=== PATIENT | male | born 1950 | race Caucasian/White ===

== ENCOUNTER 2018-11-12 16:01 | Observation (INO) | payer OTHER ==
[~2018-11-12] VITALS: Ht 182.9 cm; Wt 106.5 kg
[~2018-11-12 16:01] MED LIST: CARI350 PO; CYCL10 PO; HYDACE5 PO; LISI5 PO; METF500 PO; METO50 PO; NAPR500 PO; Norco 10-325 T1 EACH PO; SIMV10 PO
[2018-11-12 16:47] LABS: BASOPHILS ABSOLUTE AUTO 0.05 K/mm3 (0.00-0.23); BASOPHILS PERCENT AUTO 1 % (0-2); EOSINOPHILS ABSOLUTE AUTO 0.13 K/mm3 (0.00-0.68); EOSINOPHILS PERCENT AUTO 2 % (0-6); Hematocrit 43.9 % (37.0-53.0); Hemoglobin 14.5 g/dL (13.5-17.5); IMMATURE GRAN ABSOLUTE AUTO 0.05 K/mm3 (0.00-0.10); IMMATURE GRAN PERCENT AUTO 1 % (0-1); LYMPHOCYTES ABSOLUTE AUTO 0.81 K/mm3 (0.84-5.20); LYMPHOCYTES PERCENT AUTO 13 % (21-46); MONOCYTES ABSOLUTE AUTO 0.54 K/mm3 (0.16-1.47); MONOCYTES PERCENT AUTO 9 % (4-13); Mean Corpuscular HGB 28.7 pg (26.0-34.0); Mean Corpuscular Volume 87 fL (80-100); Mean Platelet Volume 10.4 fL (9.1-12.4); NEUTROPHILS ABSOLUTE AUTO 4.53 K/mm3 (1.96-9.15); NEUTROPHILS PERCENT AUTO 74 % (41-73); Platelet Count 144 K/mm3 (150-400); RDW Coefficient Variation 14.4 % (11.7-14.2); RDW Standard Deviation 46.1 fL (35.1-46.3); Red Blood Cell Count 5.05 M/mm3 (4.30-5.90); White Blood Cell Count 6.11 K/mm3 (4.00-11.30)
[2018-11-12] MEDS ORDERED: ASPI81CH PO (17:21)
[2018-11-12 17:22] LABS: Alanine Aminotransfer (ALT/SGP 21 U/L (12-78); Albumin, Blood 3.5 g/dL (3.4-5.0); Albumin/Globulin Ratio 0.9 (0.8-1.8); Alk Phos 228 U/L (50-136); Anion Gap 7 mmol/L (6-16); Aspartate Aminotrans (AST/SGOT 34 U/L (12-37); Bilirubin, Total 0.8 mg/dL (0.1-1.0); Blood Urea Nitrogen 20 mg/dL (8-24); Bun/Creatinine Ratio 17.5 (12.0-20.0); CO2, Blood 27 mmol/L (21-32); Calcium, Blood 8.6 mg/dL (8.5-10.1); Chloride, Blood 107 mmol/L (98-108); Creatinine, Blood 1.14 mg/dL (0.60-1.20); Globulin, Blood 3.7 g/dL (2.2-4.0); Glomerular Filtration Rate >60 (60-); Glucose, Blood 189 mg/dL (70-99); Potassium, Blood 3.9 mmol/L (3.5-5.5); Sodium, Blood 141 mmol/L (136-145); Total Protein, Blood 7.2 g/dL (6.4-8.2); Troponin I 0.017 ng/mL (0.000-0.040)
[2018-11-13 00:35] LABS: BASOPHILS ABSOLUTE AUTO 0.03 K/mm3 (0.00-0.23); BASOPHILS PERCENT AUTO 1 % (0-2); EOSINOPHILS ABSOLUTE AUTO 0.11 K/mm3 (0.00-0.68); EOSINOPHILS PERCENT AUTO 2 % (0-6); Hematocrit 39.1 % (37.0-53.0); IMMATURE GRAN ABSOLUTE AUTO 0.04 K/mm3 (0.00-0.10); IMMATURE GRAN PERCENT AUTO 1 % (0-1); LYMPHOCYTES ABSOLUTE AUTO 0.79 K/mm3 (0.84-5.20); LYMPHOCYTES PERCENT AUTO 14 % (21-46); MONOCYTES ABSOLUTE AUTO 0.52 K/mm3 (0.16-1.47); MONOCYTES PERCENT AUTO 9 % (4-13); Mean Corpuscular HGB 28.6 pg (26.0-34.0); Mean Corpuscular HGB Conc 33.2 g/dL (31.5-36.5); Mean Corpuscular Volume 86 fL (80-100); Mean Platelet Volume 10.2 fL (9.1-12.4); NEUTROPHILS ABSOLUTE AUTO 4.29 K/mm3 (1.96-9.15); NEUTROPHILS PERCENT AUTO 74 % (41-73); Platelet Count 112 K/mm3 (150-400); RDW Coefficient Variation 14.3 % (11.7-14.2); RDW Standard Deviation 44.5 fL (35.1-46.3); Red Blood Cell Count 4.55 M/mm3 (4.30-5.90); White Blood Cell Count 5.78 K/mm3 (4.00-11.30)
[2018-11-13 00:50] LABS: Anion Gap 7 mmol/L (6-16); Blood Urea Nitrogen 17 mg/dL (8-24); Bun/Creatinine Ratio 16.5 (12.0-20.0); CO2, Blood 27 mmol/L (21-32); Calcium, Blood 8.1 mg/dL (8.5-10.1); Chloride, Blood 107 mmol/L (98-108); Creatinine, Blood 1.03 mg/dL (0.60-1.20); Glomerular Filtration Rate >60 (60-); Glucose, Blood 143 mg/dL (70-99); Sodium, Blood 141 mmol/L (136-145)
--- NOTE | 2018-11-13 05:16 | NUR ---
SHIFT SUMMARY PT ADMITTED FOR CHEST PAIN. PT STATES PAIN A 4/10 UPON ARRIVAL, WORSE WITH DEEP BREATHS. DENIES FEELING SHORT OF BREATH. PT ALERT AND ORIENTED, INDEPENDENT IN ROOM. TELE APPLIED AND IS INTACT SHOWS NSR RATE IN THE 80'S. WILL CONTINUE TO MONITOR.
--- NOTE | 2018-11-13 12:40 | NUR ---
Echocardiogram completed.
--- NOTE | 2018-11-13 18:08 | NUR ---
ALERT AND ORIENTED. HAD FIRST PART OF STRESS TEST. GIVEN MEDS FOR VOMITING W/GOOD RESULTS. INDEPENDENT IN ROOM. TELE ON AND PER TECH SR W/OCC PVC'S. COOPERATIVE. PLEASANT. WHEN ASKED ABOUT PAIN , MILD TO NONE. ECHO AND US WARD LEGS DONE. UNLABORED RESPIRATIONS. WILL CONTINUE TO MONITOR.
--- NOTE | 2018-11-14 04:46 | NUR ---
SHIFT SUMMARY PT IS A&O, INDEPENDANT IN RM. RESTING QUIETLY AT START OF SHIFT. DENIED NEEDS. NO C/O PAIN. REQUESTED ZOFRAN AT HS. REPORTED THAT SOME MEDICATIONS MAKE HIM SICK. PT ADMITTED FOR CP. FIRST PART OF STRESS TEST COMPLETE ON TUESDAY. SECOND PART DUE TODAY. PT TO HAVE BREAKFAST AT 07:45 AND BE FINISHED BY 08:30, PER SHIFT REPORT. HX OF CHF, HTN, HLD, AND STOKE. SR ON TELE. CALL LT IN REACH. ABLE TO MAKE NEEDS KNOWN.
[2018-11-14] MEDS ORDERED: ACET325 PO (18:09)
[2018-11-14] MEDS ORDERED: FURO40 PO (18:10)
[2018-11-14] MEDS ORDERED: FAMO20 PO (18:10)
[2018-11-14] MEDS ORDERED: DOCU100 PO (18:10)
--- NOTE | 2018-11-14 19:07 | NUR ---
REVIEW D'C INSTRUCTIONS. AWARE TO RETAIL [facility] AT [facility] IN [place]. AWARE TO MAKE APPT W/[facility]. STS SEES [facility] TUESDAY AND THEY WILL BE ABLE TO GET HIM AN APPT WITHIN 2 DAYS. AWARE TO CALL CARDIOLOGY AND MAKE APPT. GIVEN NAME BUT TOLD OTHER CARDIOLOGISTS IN HIS OFFICE MAY BE ABLE TO GET HIM IN ALSO. TALKED ABOUT PATIENT [facility] WHICH HE CAN CALL TOMORROW ABOUT ADMIT. ANSWER ALL QUESTIONS. VERBALIZES UNDERSTANDING OF INSTRUCTIONS. IN W/C W/WEIGH TANK OPERATOR TO POV WITH MULTIPLE FAMILY MEMBERS.
== END 2018-11-14 19:11 | disposition home or self-care (01) ==
LOC: ER 16:01 → MEDS 16:02 → ER 18:49 → MEDS 20:03
PROVIDERS: Physician Assistant; ADMIT Internal Medicine
DX: R07.89 Other chest pain (principal); I11.0 Hypertensive heart disease with heart failure; I50.9 Heart failure, unspecified; E11.9 Type 2 diabetes mellitus without complications; E78.5 Hyperlipidemia, unspecified; R79.1 Abnormal coagulation profile; I25.10 Atherosclerotic heart disease of native coronary artery without angina pectoris; I25.2 Old myocardial infarction; Z88.0 Allergy status to penicillin; Z86.73 Personal history of transient ischemic attack (TIA), and cerebral infarction without residual deficits; Z79.82 Long term (current) use of aspirin; Z79.899 Other long term (current) drug therapy; Z88.8 Allergy status to other drugs, medicaments and biological substances
CPT/HCPCS: 36415; 71046; 71260; 78452; 80048; 80053; 82947; 83880; 84484; 85025; 85379; 93005; 93010; 93017; 93306; 93970; 96372; 96374; 96375; 99285-25; A9500; G0378; J0706; J1650; J1940; J2405; J2785; Q9967

== ENCOUNTER 2018-11-30 11:50 | Emergency (ER) | payer OTHER ==
[~2018-11-30] VITALS: Ht 182.9 cm; Wt 104.3 kg
[~2018-11-30 11:50] MED LIST changes: +ACET325 PO; +ASPI81CH PO; +DOCU100 PO; +FAMO20 PO; +FURO40 PO
[2018-11-30 12:41] LABS: BASOPHILS ABSOLUTE AUTO 0.05 K/mm3 (0.00-0.23); BASOPHILS PERCENT AUTO 1 % (0-2); EOSINOPHILS ABSOLUTE AUTO 0.04 K/mm3 (0.00-0.68); EOSINOPHILS PERCENT AUTO 1 % (0-6); Hematocrit 39.8 % (37.0-53.0); Hemoglobin 13.2 g/dL (13.5-17.5); IMMATURE GRAN ABSOLUTE AUTO 0.11 K/mm3 (0.00-0.10); IMMATURE GRAN PERCENT AUTO 2 % (0-1); LYMPHOCYTES ABSOLUTE AUTO 0.84 K/mm3 (0.84-5.20); LYMPHOCYTES PERCENT AUTO 12 % (21-46); MONOCYTES ABSOLUTE AUTO 0.59 K/mm3 (0.16-1.47); MONOCYTES PERCENT AUTO 8 % (4-13); Mean Corpuscular HGB 27.8 pg (26.0-34.0); Mean Corpuscular HGB Conc 33.2 g/dL (31.5-36.5); Mean Corpuscular Volume 84 fL (80-100); Mean Platelet Volume 9.6 fL (9.1-12.4); NEUTROPHILS ABSOLUTE AUTO 5.39 K/mm3 (1.96-9.15); NEUTROPHILS PERCENT AUTO 77 % (41-73); Platelet Count 126 K/mm3 (150-400); RDW Coefficient Variation 14.2 % (11.7-14.2); RDW Standard Deviation 43.6 fL (35.1-46.3); Red Blood Cell Count 4.74 M/mm3 (4.30-5.90); White Blood Cell Count 7.02 K/mm3 (4.00-11.30)
[2018-11-30 12:58] LABS: Albumin, Blood 3.3 g/dL (3.4-5.0); Albumin/Globulin Ratio 0.8 (0.8-1.8); Bilirubin, Total 0.7 mg/dL (0.1-1.0); Bun/Creatinine Ratio 19.1 (12.0-20.0); Calcium, Blood 9.6 mg/dL (8.5-10.1); Creatinine, Blood 1.41 mg/dL (0.60-1.20); Globulin, Blood 4.4 g/dL (2.2-4.0); Potassium, Blood 4.9 mmol/L (3.5-5.5); Total Protein, Blood 7.7 g/dL (6.4-8.2)
[2018-11-30 13:04] LABS: Source, Urine Clean Catch
[2018-11-30 13:11] LABS: Bilirubin, Urine Neg (Neg); Blood, Urine 2+ (Neg); Glucose Qualitative, Urine Neg (Neg); Ketones, Urine 1+ (Neg); Leukocyte Esterase, Urine Neg (Neg); Nitrite, Urine Neg (Neg); Protein, Urine 2+ (Neg); Specific Gravity, Urine 1.015 (1.003-1.022); Urobilinogen, Urine NORM (Normal)
[2018-11-30 14:44] LABS: Appearance, Urine Clear (Clear); Color, Urine Yellow (P-Yellow)
[2018-11-30 14:57] LABS: Bacteria Few /hpf; Hyaline Casts 0-2 /lpf (0-2); Mucus Light (0-Heavy); Squamous Epithelial Cells Rare /hpf (Few)
[2018-11-30] MEDS ORDERED: Norco 5-325 Ta1 EACH PO (16:58)
== END 2018-11-30 18:03 | disposition home or self-care (01) ==
LOC: ER 11:50
PROVIDERS: Physician Assistant
DX: E86.0 Dehydration (principal); N17.9 Acute kidney failure, unspecified; N28.1 Cyst of kidney, acquired; I25.10 Atherosclerotic heart disease of native coronary artery without angina pectoris; I10 Essential (primary) hypertension; E11.9 Type 2 diabetes mellitus without complications; I25.2 Old myocardial infarction; E78.5 Hyperlipidemia, unspecified; Z79.84 Long term (current) use of oral hypoglycemic drugs; Z79.82 Long term (current) use of aspirin; Z79.899 Other long term (current) drug therapy; Z88.0 Allergy status to penicillin; Z88.8 Allergy status to other drugs, medicaments and biological substances
CPT/HCPCS: 36415; 76770; 80053; 81001; 83690; 83880; 85025; 96361; 96374; 96375; 96376; 99283-25; J1170; J2405; J3010; J7030; J7120

== ENCOUNTER 2018-12-08 13:03 | Emergency (ER) | payer OTHER ==
[~2018-12-08] VITALS: Ht 180.3 cm; Wt 102.1 kg
[~2018-12-08 13:03] MED LIST changes: +Norco 5-325 Ta1 EACH PO
[2018-12-08 13:59] LABS: BASOPHILS ABSOLUTE AUTO 0.03 K/mm3 (0.00-0.23); BASOPHILS PERCENT AUTO 1 % (0-2); EOSINOPHILS ABSOLUTE AUTO 0.08 K/mm3 (0.00-0.68); EOSINOPHILS PERCENT AUTO 1 % (0-6); Hematocrit 37.2 % (37.0-53.0); Hemoglobin 12.3 g/dL (13.5-17.5); IMMATURE GRAN PERCENT AUTO 2 % (0-1); LYMPHOCYTES ABSOLUTE AUTO 0.71 K/mm3 (0.84-5.20); LYMPHOCYTES PERCENT AUTO 13 % (21-46); MONOCYTES ABSOLUTE AUTO 0.43 K/mm3 (0.16-1.47); MONOCYTES PERCENT AUTO 8 % (4-13); Mean Corpuscular HGB Conc 33.1 g/dL (31.5-36.5); Mean Corpuscular Volume 85 fL (80-100); Mean Platelet Volume 9.3 fL (9.1-12.4); NEUTROPHILS ABSOLUTE AUTO 4.22 K/mm3 (1.96-9.15); NEUTROPHILS PERCENT AUTO 76 % (41-73); Platelet Count 132 K/mm3 (150-400); RDW Coefficient Variation 14.7 % (11.7-14.2); RDW Standard Deviation 45.1 fL (35.1-46.3); White Blood Cell Count 5.57 K/mm3 (4.00-11.30)
[2018-12-08 14:12] LABS: Alanine Aminotransfer (ALT/SGP 37 U/L (12-78); Albumin, Blood 3.2 g/dL (3.4-5.0); Albumin/Globulin Ratio 0.7 (0.8-1.8); Alk Phos 299 U/L (50-136); Anion Gap 7 mmol/L (6-16); Aspartate Aminotrans (AST/SGOT 52 U/L (12-37); Bilirubin, Total 0.5 mg/dL (0.1-1.0); Blood Urea Nitrogen 31 mg/dL (8-24); Bun/Creatinine Ratio 21.7 (12.0-20.0); CO2, Blood 25 mmol/L (21-32); Calcium, Blood 9.5 mg/dL (8.5-10.1); Chloride, Blood 106 mmol/L (98-108); Creatinine, Blood 1.43 mg/dL (0.60-1.20); Globulin, Blood 4.3 g/dL (2.2-4.0); Glomerular Filtration Rate 52 (60-); Glucose, Blood 104 mg/dL (70-99); Potassium, Blood 4.4 mmol/L (3.5-5.5); Sodium, Blood 138 mmol/L (136-145); Total Protein, Blood 7.5 g/dL (6.4-8.2); Troponin I <0.015 ng/mL (0.000-0.040)
[2018-12-08 15:47] LABS: Source, Urine Clean Catch
[2018-12-08 15:53] LABS: Appearance, Urine Clear (Clear); Bilirubin, Urine Neg (Neg); Blood, Urine 2+ (Neg); Color, Urine Yellow (P-Yellow); Glucose Qualitative, Urine Neg (Neg); Ketones, Urine Neg (Neg); Leukocyte Esterase, Urine Neg (Neg); Nitrite, Urine Neg (Neg); Protein, Urine 2+ (Neg); Urobilinogen, Urine NORM (Normal)
[2018-12-08 15:59] LABS: Bacteria Few /hpf; Squamous Epithelial Cells Not Seen /hpf (Few); White Blood Cells, Urine 0-2 /hpf (0-5)
[2018-12-08] MEDS ORDERED: PHENERGAN25 MG PR (16:21)
[2018-12-09] MEDS ORDERED: Stool Softener240 MG PO (10:37)
[2018-12-09] MEDS ORDERED: Prilosec Otc20 MG PO (10:37)
== END 2018-12-08 17:05 | disposition home or self-care (01) ==
LOC: ER 13:03
PROVIDERS: Emergency Medicine
DX: N13.30 Unspecified hydronephrosis (principal); N18.9 Chronic kidney disease, unspecified; R74.8 Abnormal levels of other serum enzymes; Z88.0 Allergy status to penicillin; Z88.8 Allergy status to other drugs, medicaments and biological substances; Z79.899 Other long term (current) drug therapy; Z79.84 Long term (current) use of oral hypoglycemic drugs; Z79.82 Long term (current) use of aspirin; I25.2 Old myocardial infarction
CPT/HCPCS: 36415; 76770; 80053; 81001; 83690; 84484; 85025; 93005; 93010; 96361; 96374; 96375; 99284-25; J2270; J2405; J7030

== ENCOUNTER 2018-12-09 08:26 | Emergency (ER) | payer OTHER ==
[~2018-12-09] VITALS: Ht 182.9 cm; Wt 102.1 kg
[~2018-12-09 08:26] MED LIST changes: +PHENERGAN25 MG PR
[2018-12-09 08:49] LABS: Source, Urine Clean Catch
[2018-12-09 08:52] LABS: Appearance, Urine Clear (Clear); Bilirubin, Urine Neg (Neg); Blood, Urine 2+ (Neg); Color, Urine Yellow (P-Yellow); Glucose Qualitative, Urine Neg (Neg); Ketones, Urine Neg (Neg); Leukocyte Esterase, Urine Neg (Neg); Nitrite, Urine Neg (Neg); Protein, Urine 2+ (Neg); Urobilinogen, Urine 1+ (Normal)
[2018-12-09 09:11] LABS: BASOPHILS ABSOLUTE AUTO 0.04 K/mm3 (0.00-0.23); BASOPHILS PERCENT AUTO 1 % (0-2); EOSINOPHILS ABSOLUTE AUTO 0.05 K/mm3 (0.00-0.68); EOSINOPHILS PERCENT AUTO 1 % (0-6); Hematocrit 35.5 % (37.0-53.0); Hemoglobin 11.8 g/dL (13.5-17.5); IMMATURE GRAN ABSOLUTE AUTO 0.08 K/mm3 (0.00-0.10); IMMATURE GRAN PERCENT AUTO 1 % (0-1); LYMPHOCYTES ABSOLUTE AUTO 0.49 K/mm3 (0.84-5.20); LYMPHOCYTES PERCENT AUTO 8 % (21-46); MONOCYTES ABSOLUTE AUTO 0.51 K/mm3 (0.16-1.47); MONOCYTES PERCENT AUTO 9 % (4-13); Mean Corpuscular HGB 27.6 pg (26.0-34.0); Mean Corpuscular HGB Conc 33.2 g/dL (31.5-36.5); Mean Corpuscular Volume 83 fL (80-100); Mean Platelet Volume 9.3 fL (9.1-12.4); NEUTROPHILS PERCENT AUTO 81 % (41-73); Platelet Count 117 K/mm3 (150-400); Red Blood Cell Count 4.27 M/mm3 (4.30-5.90); White Blood Cell Count 5.97 K/mm3 (4.00-11.30)
[2018-12-09 09:35] LABS: Albumin, Blood 3.1 g/dL (3.4-5.0); Albumin/Globulin Ratio 0.8 (0.8-1.8); Bilirubin, Total 0.9 mg/dL (0.1-1.0); Bun/Creatinine Ratio 20.5 (12.0-20.0); Creatinine, Blood 1.32 mg/dL (0.60-1.20); Globulin, Blood 4.1 g/dL (2.2-4.0); Potassium, Blood 4.5 mmol/L (3.5-5.5); Total Protein, Blood 7.2 g/dL (6.4-8.2)
[2018-12-09 09:51] LABS: Bacteria Rare /hpf; Squamous Epithelial Cells Rare /hpf (Few)
[2018-12-09 10:24] LABS: International Normalized Ratio 1.1; Prothrombin Time Results 11.6 Sec (9.7-11.5)
[2018-12-09] MEDS ORDERED: Stool Softener240 MG PO (10:37)
[2018-12-09] MEDS ORDERED: Prilosec Otc20 MG PO (10:37)
== END 2018-12-09 11:30 | disposition home or self-care (01) ==
LOC: ER 08:26
PROVIDERS: Physician Assistant
DX: K92.2 Gastrointestinal hemorrhage, unspecified (principal); M54.5 Low back pain; R11.2 Nausea with vomiting, unspecified; I25.2 Old myocardial infarction; Z79.899 Other long term (current) drug therapy; Z79.82 Long term (current) use of aspirin; Z79.84 Long term (current) use of oral hypoglycemic drugs
CPT/HCPCS: 36415; 80053; 81001; 85025; 85610; 85730; 96361; 96374; 96375; 99284-25; C9113; J1170; J2550; J7030

== ENCOUNTER → 2019-11-21 | Outpatient (CLI) | payer OTHER ==
[~2019-11-21] MED LIST changes: +Prilosec Otc20 MG PO; +Stool Softener240 MG PO
[2019-11-21 17:14] LABS: Microalb/Creat Ratio UR, Rand 18.433 mg/g (0.000-30.000); Microalbumin, Random Urine 24.7 mg/L (0.000-20.000)
== END | disposition home or self-care (01) ==
LOC: LAB SHORT 14:40 → LAB 14:40
PROVIDERS: Nurse Practitioner Family
DX: E11.9 Type 2 diabetes mellitus without complications (principal)
CPT/HCPCS: 82043; 82570

== ENCOUNTER 2020-08-06 10:28 | Observation (INO) | payer OTHER ==
[~2020-08-06] VITALS: Ht 182.9 cm; Wt 113.4 kg
[~2020-08-06 10:28] MED LIST changes: -ASPI81CH PO; -LISI5 PO; -METO50 PO
[2020-08-06 11:23] LABS: BASOPHILS ABSOLUTE AUTO 0.03 K/mm3 (0.00-0.23); BASOPHILS PERCENT AUTO 0 % (0-2); EOSINOPHILS ABSOLUTE AUTO 0.07 K/mm3 (0.00-0.68); EOSINOPHILS PERCENT AUTO 1 % (0-6); Hematocrit 34.4 % (37.0-53.0); Hemoglobin 10.8 g/dL (13.5-17.5); IMMATURE GRAN ABSOLUTE AUTO 0.09 K/mm3 (0.00-0.10); IMMATURE GRAN PERCENT AUTO 1 % (0-1); LYMPHOCYTES ABSOLUTE AUTO 0.96 K/mm3 (0.84-5.20); LYMPHOCYTES PERCENT AUTO 13 % (21-46); MONOCYTES ABSOLUTE AUTO 0.48 K/mm3 (0.16-1.47); MONOCYTES PERCENT AUTO 7 % (4-13); Mean Corpuscular HGB 26.4 pg (26.0-34.0); Mean Corpuscular HGB Conc 31.4 g/dL (31.5-36.5); Mean Corpuscular Volume 84 fL (80-100); Mean Platelet Volume 10.4 fL (9.1-12.4); NEUTROPHILS ABSOLUTE AUTO 5.65 K/mm3 (1.96-9.15); NEUTROPHILS PERCENT AUTO 78 % (41-73); Platelet Count 220 K/mm3 (150-400); RDW Coefficient Variation 15.6 % (11.7-14.2); RDW Standard Deviation 47.7 fL (35.1-46.3); Red Blood Cell Count 4.09 M/mm3 (4.30-5.90); White Blood Cell Count 7.28 K/mm3 (4.00-11.30)
[2020-08-06 11:47] LABS: Alanine Aminotransfer (ALT/SGP 36 U/L (12-78); Albumin, Blood 2.7 g/dL (3.4-5.0); Albumin/Globulin Ratio 0.5 (0.8-1.8); Alk Phos 744 U/L (50-136); Anion Gap 9 mmol/L (6-16); Aspartate Aminotrans (AST/SGOT 48 U/L (12-37); Bilirubin, Total 1.1 mg/dL (0.1-1.0); Blood Urea Nitrogen 32 mg/dL (8-24); Bun/Creatinine Ratio 19.5 (12.0-20.0); CO2, Blood 24 mmol/L (21-32); Calcium, Blood 9.5 mg/dL (8.5-10.1); Chloride, Blood 106 mmol/L (98-108); Creatinine, Blood 1.64 mg/dL (0.60-1.20); Globulin, Blood 5.1 g/dL (2.2-4.0); Glomerular Filtration Rate 44 (60-); Glucose, Blood 314 mg/dL (70-99); Potassium, Blood 4.1 mmol/L (3.5-5.5); Sodium, Blood 139 mmol/L (136-145); Total Protein, Blood 7.8 g/dL (6.4-8.2); Troponin I <0.015 ng/mL (0.000-0.040)
[2020-08-06] MEDS ORDERED: PANTOPRAZOLE SO40 M2 PO (13:16)
[2020-08-06] MEDS ORDERED: ATORVASTATIN CA20 MG PO (13:17)
[2020-08-06] MEDS ORDERED: Imdur-ER60 MG PO (13:18)
[2020-08-06] MEDS ORDERED: GLIP5 PO (13:19)
[2020-08-06] MEDS ORDERED: METOPROLOL TART25 MG PO (13:19)
[2020-08-06] MEDS ORDERED: LISI5 PO (13:20)
[2020-08-06] MEDS ORDERED: Aspir 8181 MG PO (13:21)
[2020-08-06] MEDS ORDERED: GLIP10ER PO (13:42)
--- NOTE | 2020-08-06 17:01 | NUR ---
PT ARRIVED TO UNIT AT APROX 1600 FROM ER. PT DENIES CP OR SOB AT THIS TIME, DOES C/O NAUSEA. PT TEARFUL AT TIMES DUE TO WIFES TODAY. FAMILY AT BEDSIDE.
--- NOTE | 2020-08-06 23:44 | NUR ---
NAUSEA + LIQUID RED STOOL PT REPORTING NAUSEA NOT DECREASED WITH ORDERED RAND LEUNG NOTIFIED + NEW ORDERS OBTAINED. BRINE TANK OPERATOR ALSO NOTIFIED OF SMALL AMOUNTS OF LIQUID RED STOOL + AWAITING STOOL GUIAC RESULTS, NO NEW ORDERS AT THIS TIME.
--- NOTE | 2020-08-07 04:15 | NUR ---
SHIFT SUMMARY NEW ADMIT YESTARDAY EVENING. AAOX4/ANXIOUS AT TIMES. PT DENIES DISCOMFORT. REPORTS CHRONIC NAUSEA, NOT CONTROLLED WITH ZOFRAN PO OR IV, DR NOTIFIED + COMPAZINE ORDERED, HELPED PT RESTING THROUGH MOST OF MORNING. SMALL AMOUNTS OF CLEAR EMESIS THIS SHIFT. MINIMAL PO INTAKE + URINE OUT THIS SHIFT. INCONTINENT IN ATTENDS WITH MULTIPLE SMALL LIQUID RED STOOLS, AWAITING STOOL GUIAC RESULTS + WILL CONTINUE TO ATTEMPT COLLECTION OF 2ND STOOL THIS AM, NOTIFIED THIS SHIFT OF RED LIQUID STOOL, NO NEW ORDERS, SEE NURSES NOTE. PT IN BED T/O SHIFT RESTING, ENCOURAGE REPOSITIONING + AMBULATION TODAY TOLERATED. AWAITING LAB THIS AM. TELEMETRY NSR WITH PVCs + BBB. REFUSING LOVENOX. SON AT BEDSIDE T/O NIGHT. NEW 20G IV PL[address] TO [facility]. PT CURRENTLY RESTING IN BED + REQUESTED TO NOT BE AWOKEN, WILL CONSOLIDATE CARE TO PROVIDE BEST REST FOR PT. PT CURRENTLY RESTING IN BED WITH CALL LIGHT IN REACH.
[2020-08-07 05:47] LABS: Hematocrit 29.5 % (37.0-53.0); Hemoglobin 9.4 g/dL (13.5-17.5); Mean Corpuscular HGB 26.3 pg (26.0-34.0); Mean Corpuscular HGB Conc 31.9 g/dL (31.5-36.5); Mean Corpuscular Volume 83 fL (80-100); Mean Platelet Volume 9.8 fL (9.1-12.4); Platelet Count 185 K/mm3 (150-400); RDW Coefficient Variation 15.2 % (11.7-14.2); RDW Standard Deviation 46.6 fL (35.1-46.3); Red Blood Cell Count 3.57 M/mm3 (4.30-5.90); White Blood Cell Count 7.33 K/mm3 (4.00-11.30)
[2020-08-07 06:07] LABS: Bun/Creatinine Ratio 20.3 (12.0-20.0); Calcium, Blood 8.9 mg/dL (8.5-10.1); Creatinine, Blood 1.77 mg/dL (0.60-1.20)
[2020-08-07 09:05] LABS: Stool Occult Blood Guaiac 1 Pos (Neg)
[2020-08-07 10:02] LABS: Hematocrit 28.4 % (37.0-53.0); Hemoglobin 8.9 g/dL (13.5-17.5)
[2020-08-07 14:36] LABS: Hematocrit 27.7 % (37.0-53.0); Hemoglobin 8.7 g/dL (13.5-17.5)
--- NOTE | 2020-08-07 19:56 | NUR ---
SHIFT SUMMARY PT A&OX4, VSS, DENIES PAIN, NAUSEA TX'D WITH COMPAZINE 10 MG IV. GI CONSULT COMPLETE. STAND PIVOT TO BSC W/1 PP MOD ASSIST. VOIDING WELL, BM'S RED BLOOD W/STOOL (BOTH HOSPITALIST AND GI MD SAW RED BL BM). BANDAR PO, DENIES N&V. REPORT PROVIDED TO ROSA RUBIN.
[2020-08-07 22:14] LABS: Hematocrit 26.1 % (37.0-53.0); Hemoglobin 8.3 g/dL (13.5-17.5)
[2020-08-08 02:45] LABS: Hematocrit 24.9 % (37.0-53.0); Hemoglobin 7.9 g/dL (13.5-17.5)
[2020-08-08 03:00] LABS: Anion Gap 7 mmol/L (6-16); Blood Urea Nitrogen 41 mg/dL (8-24); Bun/Creatinine Ratio 24.1 (12.0-20.0); CO2, Blood 25 mmol/L (21-32); Calcium, Blood 8.3 mg/dL (8.5-10.1); Chloride, Blood 109 mmol/L (98-108); Glomerular Filtration Rate 42 (60-); Glucose, Blood 97 mg/dL (70-99); Phosphorus, Blood 2.8 mg/dL (2.5-4.9); Potassium, Blood 3.5 mmol/L (3.5-5.5); Sodium, Blood 141 mmol/L (136-145)
--- NOTE | 2020-08-08 04:33 | NUR ---
SHIFT SUMMARY PT RESTED WELL T/O NIGHT. AAOX4. PT DENIES DISCOMFORT. NAUSEA CONTROLLED WITH COMPAZINE 10MG X1 THIS SHIFT, NO EMESIS. X1 SCANT LIQUID RED STOOL. NEW IV PLACED THIS SHIFT RIGHT FA WITH IVF INFUSING PER ORDERS. Q6H H+H. GI CONSULT. NO ACUTE CHANGES THIS SHIFT. PT CURRENTLY RESTING IN BED WITH CALL LIGHT IN REACH.
[2020-08-08 08:54] LABS: Hematocrit 28.3 % (37.0-53.0); Hemoglobin 8.9 g/dL (13.5-17.5)
[2020-08-08] MEDS ORDERED: COMPAZINE10 MG PO (11:39)
--- NOTE | 2020-08-08 13:49 | NUR ---
DISCHARGE SUMMARY PT A&OX4, VSS, LEFT FLOOR VIA HIS OWN WC WITH SON, WITH ALL PERSONAL POSSESSIONS, INCLUDING DC INSTRUCTIONS. SCRIPTS FAXED TO [facility]. ENCOURAGED PT TO CONTACT GI DR FOR OUTPT COLONOSCOPY NEXT WEEK. IV DC'D.
== END 2020-08-08 12:47 | disposition home or self-care (01) ==
LOC: ER 10:28 → MEDS 15:55 → SURS 15:55
PROVIDERS: Emergency Medicine; Nurse Practitioner Acute Care; ADMIT Internal Medicine
DX: R07.9 Chest pain, unspecified (principal); Z20.828 Contact with and (suspected) exposure to other viral communicable diseases; K62.5 Hemorrhage of anus and rectum; I12.9 Hypertensive chronic kidney disease with stage 1 through stage 4 chronic kidney disease, or unspecified chronic kidney disease; E11.22 Type 2 diabetes mellitus with diabetic chronic kidney disease; N17.9 Acute kidney failure, unspecified; I25.10 Atherosclerotic heart disease of native coronary artery without angina pectoris; N18.30 Chronic kidney disease, stage 3 unspecified; E78.5 Hyperlipidemia, unspecified; K21.9 Gastro-esophageal reflux disease without esophagitis; I25.2 Old myocardial infarction; E66.01 Morbid (severe) obesity due to excess calories; D62 Acute posthemorrhagic anemia; Z88.0 Allergy status to penicillin; Z88.8 Allergy status to other drugs, medicaments and biological substances; Z79.899 Other long term (current) drug therapy; Z79.82 Long term (current) use of aspirin; Z79.84 Long term (current) use of oral hypoglycemic drugs; Z66 Do not resuscitate; Z68.33 Body mass index [BMI] 33.0-33.9, adult
CPT/HCPCS: 36415; 71046; 80048; 80053; 80069; 82270; 82947; 83880; 84484; 85014; 85018; 85025; 85027; 93005; 93010; 96374; 96375; 96376; 99285-25; A9270-GY; C9113; G0378; J0780; J2405; J7030; U0003

== ENCOUNTER 2020-08-08 19:07 | Emergency (ER) | payer OTHER ==
[~2020-08-08] VITALS: Ht 177.8 cm; Wt 127.0 kg
[~2020-08-08 19:07] MED LIST changes: +ATORVASTATIN CA20 MG PO; +Aspir 8181 MG PO; +COMPAZINE10 MG PO; +GLIP10ER PO; +GLIP5 PO; +Imdur-ER60 MG PO; +LISI5 PO; +METOPROLOL TART25 MG PO; +PANTOPRAZOLE SO40 M2 PO
[2020-08-08 19:20] LABS: Calcium, Ionized (POC) 1.18 mmol/L (1.10-1.46); Chloride (POC) 105 mmol/L (98-108); Creatinine (POC) 1.9 mg/dL (0.8-1.3); Glucose (ISTAT POC) 363 mg/dL (70-99); Hemoglobin (POC) 9.2 g/dL (13.5-17.5); Potassium (POC) 3.6 mmol/L (3.5-5.5); Sodium (POC) 136 mmol/L (135-148); Total CO2 (POC) 14 mmol/L (21-32)
[2020-08-08 19:34] LABS: Hematocrit 30.9 % (37.0-53.0); Hemoglobin 9.3 g/dL (13.5-17.5); Mean Corpuscular HGB 26.1 pg (26.0-34.0); Mean Corpuscular HGB Conc 30.1 g/dL (31.5-36.5); Mean Corpuscular Volume 87 fL (80-100); Mean Platelet Volume 10.4 fL (9.1-12.4); NRBC ABSOLUTE 0.04 K/mm3 (0.00-0.02); NRBC Auto 0.3 /100 WBC (0.0-0.2); Platelet Count 278 K/mm3 (150-400); RDW Coefficient Variation 15.6 % (11.7-14.2); RDW Standard Deviation 49.8 fL (35.1-46.3); Red Blood Cell Count 3.57 M/mm3 (4.30-5.90); White Blood Cell Count 11.81 K/mm3 (4.00-11.30)
[2020-08-08 19:57] LABS: BAND PERCENT MAN 8 % (0-8); BASOPHILS ABSOLUTE MAN 0.11 K/mm3 (0.00-0.23); BASOPHILS PERCENT MAN 1 % (0-2); EOSINOPHILS ABSOLUTE MAN 0.23 K/mm3 (0.00-0.68); EOSINOPHILS PERCENT MAN 2 % (0-6); LYMPHOCYTES % ATYPICAL MANUAL 2 % (0-0); LYMPHOCYTES ABSOLUTE MAN 3.66 K/mm3 (0.84-5.20); LYMPHOCYTES PERCENT MAN 29 % (21-46); MONOCYTES ABSOLUTE MAN 0.94 K/mm3 (0.16-1.47); MONOCYTES PERCENT MAN 8 % (4-13); NEUTROPHILS ABSOLUTE MAN 6.84 K/mm3 (1.96-9.15); SEG NEUTROPHILS PERCENT MAN 50 % (41-73); TOTAL CELLS COUNTED 100
[2020-08-08 19:58] LABS: Albumin, Blood 2.2 g/dL (3.4-5.0); Albumin/Globulin Ratio 0.5 (0.8-1.8); Bilirubin, Total 0.6 mg/dL (0.1-1.0); Calcium, Blood 9.2 mg/dL (8.5-10.1); Creatinine, Blood 1.83 mg/dL (0.60-1.20); Globulin, Blood 4.8 g/dL (2.2-4.0); Potassium, Blood 3.7 mmol/L (3.5-5.5); Troponin I 0.021 ng/mL (0.000-0.040)
[2020-08-08 20:02] LABS: International Normalized Ratio 1.23
[2020-08-08 20:25] LABS: Source, Urine Catheter
[2020-08-08 20:27] LABS: PCO2 Arterial 45.2 mmHg (35-45); PO2 Arterial 171 mmHg (80-100); pH Blood Arterial 7.22 (7.35-7.45)
[2020-08-08 20:29] LABS: Appearance, Urine Cloudy (Clear); Bilirubin, Urine Neg (Neg); Blood, Urine 5+ (Neg); Color, Urine Amber (P-Yellow); Glucose Qualitative, Urine 3+ (Neg); Ketones, Urine 1+ (Neg); Leukocyte Esterase, Urine Neg (Neg); Nitrite, Urine Neg (Neg); Protein, Urine 4+ (Neg); Specific Gravity, Urine 1.025 (1.003-1.022); Urobilinogen, Urine 2+ (Normal)
[2020-08-08 20:38] LABS: Mucus Mod (0-Heavy)
[2020-08-08 20:39] LABS: Amorphous Heavy (0-Heavy); Bacteria Few /hpf; Red Blood Cells, Urine 25-50 /hpf (0-2)
[2020-08-08 20:40] LABS: Renal Epithelial Few /hpf (0-Rare); Squamous Epithelial Cells Rare /hpf (Few); Transitional Epithelial Cells Mod /hpf (0-Rare)
== END 2020-08-08 23:08 ==
LOC: ER 19:07
PROVIDERS: Emergency Medicine
DX: I46.9 Cardiac arrest, cause unspecified (principal); I25.2 Old myocardial infarction; I25.10 Atherosclerotic heart disease of native coronary artery without angina pectoris; E11.9 Type 2 diabetes mellitus without complications; K21.9 Gastro-esophageal reflux disease without esophagitis; E78.5 Hyperlipidemia, unspecified; I12.9 Hypertensive chronic kidney disease with stage 1 through stage 4 chronic kidney disease, or unspecified chronic kidney disease; N18.30 Chronic kidney disease, stage 3 unspecified; Z79.84 Long term (current) use of oral hypoglycemic drugs; Z79.82 Long term (current) use of aspirin; Z88.0 Allergy status to penicillin; Z88.8 Allergy status to other drugs, medicaments and biological substances; Z79.899 Other long term (current) drug therapy
CPT/HCPCS: 31500; 36415; 36600; 51702; 70450; 71045; 80047; 80053; 81001; 82803; 84484; 85014; 85025; 85610; 85730; 93005; 93010; 94002; 96365-59; 96366-59; 99291-25; J0282; J2704; J3010; J7030; J7060